=== PATIENT | male | born 1990 | race Caucasian/White ===

== ENCOUNTER 2020-05-21 16:04 | Emergency (ER) | payer MEDICAID ==
[~2020-05-21] VITALS: Ht 185.4 cm; Wt 70.8 kg
--- NOTE | 2020-05-21 16:06 | NUR ---
Patient BIB [facility] for pre-booking medical screening exam, transferred to chair C. RN evaluating patient at bedside.
[2020-05-21 16:08] VITALS: BP 125/65
--- NOTE | 2020-05-21 16:12 | NUR ---
30 y/o male bib [employer] for prebook clearance. No complaints at this time.
[2020-05-21 16:20] VITALS: BP 125/65
--- NOTE | 2020-05-21 16:20 | NUR ---
Patient discharged with v/s stable. Written and verbal after care instructions given and explained. Patient verbalized understanding. Police with to car. All questions addressed prior to discharge. Advised to follow up with [employer]. paperwork given to [employer].
== END 2020-05-21 16:20 ==
LOC: MED 16:04
DX: F29 Unspecified psychosis not due to a substance or known physiological condition (principal); Z02.89 Encounter for other administrative examinations
CPT/HCPCS: 99283